=== PATIENT | female | born 1995 | race Caucasian/White ===

== ENCOUNTER 2016-05-19 04:48 | Inpatient (IN) | payer OTHER ==
[2016-05-19] MEDS ORDERED: IV START KIT ONE (04:49)
[2016-05-19] MEDS ORDERED: LACTATED RINGERS 1,000 ML ONE (04:49)
[2016-05-19 05:27] VITALS: BMI 25.7
[2016-05-19] MEDS: LACTATED RINGERS 1,000 ML IV SCH ×4 (05:35→21:05)
[2016-05-19] MEDS ORDERED: CEFAZOLIN SODIUM 2 GRAM DUPLEX 2 G in Premix (D5W) 50 ml 1 EACH IV PRN (06:06)
[2016-05-19] MEDS ORDERED: CEFAZOLIN SODIUM 2 GRAM DUPLEX 50 ML IV ONE (06:14)
[2016-05-19 06:25] LABS: HEMATOCRIT 35.2 % (37.0-47.0); HEMOGLOBIN 11.4 gm/l (12.0-16.0); MEAN CELL VOLUME 77.9 fl (81.0-99.0); MEAN CORPUSCULAR HEMOGLOBIN 25.2 pg (27.0-31.0); MEAN CORPUSCULAR HGB CONC 32.4 g/dl (33.0-37.0); RED CELL DISTRIBUTION WIDTH 13.7 % (11.5-14.5)
[2016-05-19] MEDS ORDERED: SPINAL PROCEDURAL TRAY 1 EACH ONE ×2 (09:05→10:06)
[2016-05-19] MEDS ORDERED: MORPHINE SULFATE (DURAMORPH) 1 MG/ML 10ML AMP ONE (09:16)
[2016-05-19] MEDS ORDERED: OXYTOCIN 10 UNITS/ML VIAL ONE (10:06)
[2016-05-19] MEDS ORDERED: BUPIVACAINE 0.75% SPINAL AMPUL 2 ML ONE (10:06)
[2016-05-19] MEDS ORDERED: LANOLIN 50 APPLIC/7G TUBE TP PRN (10:32)
[2016-05-19] MEDS ORDERED: ONDANSETRON 4 MG/2ML 2 ML VIAL IV PRN (10:32)
[2016-05-19] MEDS ORDERED: DIPHENHYDRAMINE HCL 25 MG CAPSULE PO PRN (10:32)
[2016-05-19] MEDS ORDERED: DIPHENHYDRAMINE HCL 50 MG/1 ML VIAL IV PRN (10:32)
--- NOTE | 2016-05-19 10:41 | PDOC37 ---
Procedure: Primary Section Date of Procedure: 05/19/16 Start Time: 934 Preoperative Diagnosis: 1. 39 week intrauterine . 2. History of 4th degree laceration with difficulty recovery Postoperative Diagnosis: Same Surgeon: Bianca Hernadez MD Assist: MD Mandeep Danielson MD Indication for Procedure: 21 year old, at 39 weeks 0 days with history of 4th degree laceration. Desired primary section due to difficult recovery. Risks were discussed to include bleeding, infection, damage to surrounding organs, transfusion and hysterectomy. She elected to proceed. Anesthesia: Spinal with Duramorph by Mellissa Thomas CRNA Complications: None Estimated Blood Loss: 1000 mLs IV Fluids: 1500 mLs of LR Medications: 2 gm of Ancef for routine prophylaxis. 20 units of Pitocin. Urine Output: 200 mLs of clear urine Findings: Fluid clear. Normal uterus, ovaries, and tubes. Apgars 9/9, 3154 gm, vertex female infant, nuchal cord x 1. Procedure: The patient was taken to the operating room where spinal anesthesia was found to be adequate. She was then prepared and draped in the normal sterile fashion in the dorsal supine position with a leftward tilt. A timeout was performed. A Pfannensteil skin incision was then made with the scalpel and carried through to the underlying layer of fascia with the bovie/ scalpel. The fascia was incised in the midline and the incision extended laterally with the Hernandez scissors. The superior aspect of the fascial incision was then grasped with the Baudilio clamps, elevated, and the underlying rectus muscles dissected off bluntly and sharply where needed. Attention was then turned to the inferior aspect of the incision which, in a similar fashion, was grasped, tented up with the Baudilio clamps, and the rectus muscle dissected off bluntly and sharply with Hernandez scissors. The rectus muscles were then in the midline, and the peritoneum was identified and entered bluntly. The peritoneal incision was then extended with good visualization of the bladder. The Jabari O retractor was inserted. The uterine incision was made in a transverse fashion and was then extended laterally by pulling superolaterally on both sides. Membranes were ruptured and fluid was clear. The infant's head was flexed out of OA position and delivered atraumatically. There was a nuchal cord x 1 that was reduced. The nose and mouth were suctioned with bulb suction and the cord was clamped and cut after a 1 minute delay. The infant was handed off to the waiting staff development coordinator. The placenta was then delivered with gentle cord traction. The uterus was then exteriorized and cleared of all clots and debris. The uterine incision was repaired with 0 vicryl in a running, locked fashion. A second layer of the same suture was used in an imbricating fashion to obtain excellent hemostasis. The gutters were cleared of all clots. The uterus was returned to the abdomen. The Jabari O retractor was removed. The peritoneum was closed with 2-0 Vicryl. The fascia was reapproximated with 0 Vicryl in a running fashion. The skin was closed with 4-0 Vicryl. The patient tolerated the procedure well. Sponge, lap and needle counts were correct times three. A debriefing was held at the end of the procedure with anesthesia and nursing staff. The patient was taken to the recovery room in stable condition.
[2016-05-19] MEDS: OXYCODONE/ACETAMINOPHEN 5/325 MG TABLET PO PRN ×2 (14:18→19:38)
[2016-05-19] MEDS: IBUPROFEN 800 MG TABLET PO SCH ×3 (14:18→23:20)
[2016-05-19] MEDS ORDERED: FERROUS SULFATE (65 Fe) 325 MG TABLET ONE (20:41)
[2016-05-19] MEDS: DOCUSATE SODIUM 100 MG CAPSULE PO SCH (20:46)
[2016-05-20] MEDS: OXYCODONE/ACETAMINOPHEN 5/325 MG TABLET PO PRN ×4 (01:23→21:49)
[2016-05-20] MEDS: IBUPROFEN 800 MG TABLET PO SCH ×4 (03:14→19:38)
[2016-05-20 06:28] LABS: HEMATOCRIT 32.5 % (37.0-47.0); HEMOGLOBIN 10.2 gm/l (12.0-16.0)
[2016-05-20] MEDS: FERROUS SULFATE (65 Fe) 325 MG TABLET PO SCH ×2 (07:29→12:35)
[2016-05-20] MEDS: DOCUSATE SODIUM 100 MG CAPSULE PO SCH ×3 (07:29→19:38)
[2016-05-20] MEDS: PRENATAL VIT/FE FUMARATE/FA 1 TABLET PO SCH ×2 (07:30→12:35)
--- NOTE | 2016-05-20 10:59 | PDOC44 ---
- Subjective Day: 1 Reports Flatus, Reports Pain Tolerable, Reports , Reports Lochia Light, Reports Tolerating Regular Diet, Denies Nausea, Denies Vomiting - Objective Temp Pulse Resp BP Pulse Ox 97.3 F 119 16 119/76 100 05/20/16 07:38 05/20/16 07:38 05/20/16 07:38 05/20/16 07:38 05/19/16 14:00 Lab Results 05/20/16 06:00 Hgb 10.2 L Hct 32.5 L Current Medications Generic Name Dose Route Start Last Admin Trade Name Freq PRN Reason Stop Dose Admin Diphenhydramine HCl 25 - 50 mg 05/19/16 10:32 Benadryl PO Q6H PRN Itching (Mild/Moderate) Diphenhydramine HCl 25 - 50 mg 05/19/16 10:32 Benadryl IV Q6H PRN Itching (Severe) Docusate Sodium 100 mg 05/19/16 21:00 05/20/16 07:29 Colace PO 100 mg BID JAKE Administration Emollient Ointment 1 applic 05/19/16 10:32 [id number] TP PRN PRN sore nipples Ferrous Sulfate 325 mg 05/20/16 09:00 05/20/16 07:29 Ferrous Sulfate PO 325 mg DAILY JAKE Administration Ibuprofen 800 mg 05/19/16 10:45 05/20/16 05:01 Motrin PO Not Given Q6H JAKE Multivi/Iron Carb/Fe Sulf/FA/Prenat 1 tab 05/20/16 09:00 05/20/16 07:30 Plus PO 1 tab DAILY JAKE Administration Ondansetron HCl 4 mg 05/19/16 10:32 Zofran IV Q6H PRN Nausea/Vomiting Oxycodone/Acetaminophen 1 - 2 tab 05/19/16 10:32 05/20/16 05:42 Percocet 5/325 PO 2 tab Q4H PRN Administration Pain (Moderate) Sodium Chloride 10 ml 05/19/16 07:00 05/19/16 16:59 Normal Saline 10ml Flush IV 10 ml PRN PRN Administration Sodium Chloride 10 ml 05/19/16 10:32 05/20/16 01:23 Normal Saline 10ml Flush IV 10 ml PRN PRN Administration IV Flush - Physical Exam General: Afebrile, No Acute Distress Psych/Mental Status: Mood/Affect Appropriate, Bonding Well Neurological: Alert, Oriented x 4 Lungs: Clear to Auscultation Bilaterally Cardiovascular: Regular Rate and Rhythm Breast: Nipples Intact Fundus: Firm, Midline Extremities: Full ROM, No Edema, No Tenderness Skin: Normal Color, Warm, Dry, Intact, No Rash 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 +BF. -routine pp care Disposition: Stable
[2016-05-21] MEDS: IBUPROFEN 800 MG TABLET PO SCH ×6 (02:02→20:56)
[2016-05-21] MEDS: DOCUSATE SODIUM 100 MG CAPSULE PO SCH ×4 (02:41→20:55)
[2016-05-21] MEDS: OXYCODONE/ACETAMINOPHEN 5/325 MG TABLET PO PRN ×3 (04:49→20:56)
[2016-05-21] MEDS: FERROUS SULFATE (65 Fe) 325 MG TABLET PO SCH ×2 (07:56→19:02)
[2016-05-21] MEDS: PRENATAL VIT/FE FUMARATE/FA 1 TABLET PO SCH ×2 (07:56→19:03)
--- NOTE | 2016-05-21 14:00 | PDOC44 ---
- Subjective Day: 2 Reports Flatus, Reports Pain Tolerable, Reports , Reports Tolerating Regular Diet, Denies Nausea, Denies Vomiting - Objective Temp Pulse Resp BP Pulse Ox 98.3 F 86 18 117/56 100 05/21/16 07:49 05/21/16 07:49 05/21/16 07:49 05/21/16 07:49 05/19/16 14:00 Current Medications Generic Name Dose Route Start Last Admin Trade Name Freq PRN Reason Stop Dose Admin Diphenhydramine HCl 25 - 50 mg 05/19/16 10:32 Benadryl PO Q6H PRN Itching (Mild/Moderate) Diphenhydramine HCl 25 - 50 mg 05/19/16 10:32 Benadryl IV Q6H PRN Itching (Severe) Docusate Sodium 100 mg 05/19/16 21:00 05/21/16 07:56 Colace PO 100 mg BID JAKE Administration Emollient Ointment 1 applic 05/19/16 10:32 05/20/16 22:37 [id number] TP 1 applic PRN PRN Administration sore nipples Ferrous Sulfate 325 mg 05/20/16 09:00 05/21/16 07:56 Ferrous Sulfate PO 325 mg DAILY JAKE Administration Ibuprofen 800 mg 05/19/16 10:45 05/21/16 08:11 Motrin PO 800 mg Q6H JAKE Administration Multivi/Iron Carb/Fe Sulf/FA/Prenat 1 tab 05/20/16 09:00 05/21/16 07:56 Plus PO 1 tab DAILY JAKE Administration Ondansetron HCl 4 mg 05/19/16 10:32 Zofran IV Q6H PRN Nausea/Vomiting Oxycodone/Acetaminophen 1 - 2 tab 05/19/16 10:32 05/21/16 04:49 Percocet 5/325 PO 2 tab Q4H PRN Administration Pain (Moderate) Sodium Chloride 10 ml 05/19/16 07:00 05/21/16 04:52 Normal Saline 10ml Flush IV 10 ml PRN PRN Administration Sodium Chloride 10 ml 05/19/16 10:32 05/20/16 01:23 Normal Saline 10ml Flush IV 10 ml PRN PRN Administration IV Flush - Physical Exam General: Afebrile, No Acute Distress Psych/Mental Status: Mood/Affect Appropriate, Bonding Well Neurological: Alert, Oriented x 4 Lungs: Clear to Auscultation Bilaterally Cardiovascular: Regular Rate and Rhythm Breast: Nipples Intact Fundus: Firm, Midline Extremities: Full ROM, No Edema, No Tenderness Skin: Normal Color, Warm, Dry, Intact, No Rash 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 +BF. -routine pp care Disposition: Stable, Anticipate DC Home Tomorrow
[2016-05-22] MEDS: OXYCODONE/ACETAMINOPHEN 5/325 MG TABLET PO PRN ×3 (02:26→13:39)
[2016-05-22] MEDS: IBUPROFEN 800 MG TABLET PO SCH ×3 (02:26→11:41)
[2016-05-22 07:23] VITALS: BP 107/61
[2016-05-22] MEDS: FERROUS SULFATE (65 Fe) 325 MG TABLET PO SCH (08:45)
[2016-05-22] MEDS: DOCUSATE SODIUM 100 MG CAPSULE PO SCH (08:45)
[2016-05-22] MEDS: PRENATAL VIT/FE FUMARATE/FA 1 TABLET PO SCH (08:45)
--- NOTE | 2016-05-22 12:02 | PDOC39B ---
Hospital Course: ADMIT DATE: 05/19/16 DISCHARGE DATE: 05/22/16 ADMISSION DIAGNOSES: term iup, h/o 4th degree lac and difficult recovery desires primary c section. PROCEDURES: primary c section HISTORY OF PRESENT ILLNESS: 21 year old G2 T1 L1 at 39 weeks 0 days presenting for primary c section. HOSPITAL COURSE: The patient underwent primary c section and recovered well. By day of discharge the patient is ambulating, eating, voiding, and passing flatus without difficulty. Pain is controlled and lochia is appropriate. She is breast feeding. - Physical Exam Vital Signs: Temp Pulse Resp BP Pulse Ox 98.1 F 73 16 107/61 100 05/22/16 07:20 05/22/16 07:20 05/22/16 07:20 05/22/16 07:20 05/19/16 14:00 General: Afebrile, No Acute Distress Psych/Mental Status: Mood/Affect Appropriate, Bonding Well Lungs: Clear to Auscultation Bilaterally Cardiovascular: Regular Rate and Rhythm, No Murmur Breast: Soft, Skin intact Fundus: Firm, Midline, At Umbilicus Abdomen: Normal Bowel Sounds Extremities: No Edema, No Tenderness Skin: Warm, Dry, Rash (Mild on abdomen.) Wound: Well Approximated, No Erythema, No Rash - Discharge Diagnosis (1) delivery due to previous obstetrical trauma, delivered, current hospitalization Status: AcuteAssessment/Plan: POD 3, nl exam and vitals. +BF. -routine pp care dc home today with f/u in 2 days. - Discharge Plan Condition: Good Disposition: Home Prescriptions: Docusate Sodium [Colace] 100 mg PO DAILY #30 cap Ibuprofen [IBUPROFEN 600 MG TABLET (SHF)] 1 tab PO Q6H PRN #30 tablet PRN Reason: Pain FERROUS SULFATE (65 Fe) [IRON FERROUS SULFATE 325 MG TABLET (SHF)] 325 mg PO DAILY #30 tab Oxycodone HCl/Acetaminophen [PERCOCET 5/325 MG TABLET (SHF)] 1 - 2 tab PO Q4H PRN #20 tab PRN Reason: Pain Follow-Up: Bianca Hernadez MD [Primary Care Provider] - 05/24/16
== END 2016-05-22 13:40 | disposition home or self-care (01) | DRG 766 ==
LOC: FBC 04:48 → EDSTATUS 05-26 10:48
PROVIDERS: ADMIT Family Medicine; ATTEND Family Medicine
PROC: 10D00Z1 Extraction of Products of Conception, Low, Open Approach (ICD-10-PCS; principal; 2016-05-19)
DX: O82 Encounter for cesarean delivery without indication (principal); Z3A.39 39 weeks gestation of pregnancy; Z37.0 Single live birth